=== PATIENT | male | born 1960 | race Caucasian/White ===

== ENCOUNTER 2020-06-02 13:46 | Outpatient (CLI) | payer BC, SELFPAY ==
--- NOTE | 2020-06-02 14:36 | ECG_ITS ---
Measurements Intervals Elbert Rate: 77 P: 30 MS: 169 QRS: -28 QRSD: 105 T: -11 QT: 378 QTc: 429 Interpretive Statements SINUS RHYTHM LOW QRS VOLTAGE IN PRECORDIAL LEADS BORDERLINE R WAVE PROGRESSION, ANTERIOR LEADS BORDERLINE ST-T WAVE ABNORMALITY- INFERIOR LEADS BASELINE ARTIFACT- I, II, III, AVR, AVL BORDERLINE ECG Electronically Signed On 06-02-2020 14:50:16 [employer]ORTS COMMENT[employer] by Norris Crowell D.O.
[2020-06-02 14:57] LABS: Basophils Absolute Auto 0.1 K/mm3 (0.0-0.1); Basophils Percent Auto 1.3 % (0.2-1.2); Eosinophils Absolute Auto 0.2 K/mm3 (0-0.3); Eosinophils Percent Auto 4.4 % (0-4.4); Hematocrit 41.7 % (42.0-52.0); Immature Granulocyte Absolute 0.01 K/mm3 (0.00-0.031); Immature Granulocyte Percent A 0.2 % (0-0.5); Lymphocytes Absolute Auto 1.22 K/mm3 (0.9-3.2); Lymphocytes Percent Auto 27.1 % (18.3-44.2); Mean Corpuscular HGB Conc 33.6 g/dl (32-36); Mean Corpuscular Volume 92.3 fl (80-100); Mean Platelet Volume 9.7 fl (7.4-10.4); Monocytes Absolute Auto 0.7 K/mm3 (0.1-0.6); Monocytes Percent Auto 14.9 % (2.6-8.5); Neutrophils Absolute Auto 2.4 K/mm3 (1.3-6.7); Neutrophils Percent Auto 52.1 % (45.5-73.1); Platelet Count Result 228 k/mm3 (150-375); Red Blood Count 4.52 M/mm3 (4.6-6.20); Red Cell Distribution Width 12.4 % (11.5-14.5); White Blood Count 4.5 K/mm3 (4.5-10.0)
[2020-06-02 15:12] LABS: Albumin Level 3.8 g/dL (3.5-5.1)
[2020-06-02 15:14] LABS: Anion Gap 2 mmol/L (8-16); Blood Urea Nitrogen 24 mg/dL (9-20); Calcium 8.9 mg/dL (8.4-10.2); Carbon Dioxide 27 mmol/L (22-30); Chloride 108 mmol/L (98-107); Estimated Glomerular Filt Rate > 60; Glucose 90 mg/dL (75-110); Potassium 4.4 mmol/L (3.4-5.0); Sodium 137 mmol/L (137-145)
[2020-06-02 15:18] LABS: Urine Cotinine NEGATIVE
== END 2020-06-02 13:47 | disposition home or self-care (01) ==
LOC: ANHSURGERY 13:52
PROVIDERS: Anesthesiology; PCP Family Medicine; Visit Provider Orthopaedic Surgery
DX: Z01.818 Encounter for other preprocedural examination (principal); M17.11 Unilateral primary osteoarthritis, right knee; I10 Essential (primary) hypertension
CPT/HCPCS: 36415; 80048; 80307; 82040; 83036; 85025; 86850; 86900; 86901; 93005

== ENCOUNTER → 2020-06-07 00:50 | Outpatient (CLI) | payer BC, SELFPAY ==
[2020-06-07 18:54] LABS: SARS-CoV-2 RNA PCR Negative
== END ==
PROVIDERS: PCP Family Medicine; Visit Provider Orthopaedic Surgery
DX: Z01.812 Encounter for preprocedural laboratory examination (principal); Z20.822 Contact with and (suspected) exposure to COVID-19
CPT/HCPCS: C9803; U0003; U0005

== ENCOUNTER 2020-06-11 00:12 | Day surgery (SDC) | payer BC, SELFPAY ==
[2020-06-02 13:58] VITALS: BMI 34.3
[2020-06-02 14:36] VITALS: BP 158/95; PULSE 80; RESP 16; TEMP 36.9; O2SAT 100
--- NOTE | 2020-06-06 13:50 | P.HP_ITS ---
H&P: HPI History of Present Illness Date/Time: 06/06/20 13:50 The patient is a 60-year-old male presents with right knee pain due to primary osteoarthritis. Patient has a chronic ongoing history of pain localized to the right knee pain that is worse with activity somewhat relieved by rest. He has start up pain rest pain and night pain, can not stand or walk for long periods. Any twisting or turning on the knee causes significant pain as well. Most of his pain is medial joint line and x-rays show advanced significant narrowing of the medial compartment which is nearly [id number]. He also has by previous MRI scan a medial meniscal tear but he has enough osteoarthritis that would likely only benefit from total knee arthroplasty. He has failed a long course of conservative measures including cortisone gel shots therapy and anti- inflammatories, his knee pain continues, at this point the patient has discussed further treatment options in detail with Dr. Gardner he would now like to proceed with a total knee arthroplasty and right knee. Chief Complaint: Right knee pain due to advanced primary osteoarthritis right knee Review of Systems Review of Systems: All systems reviewed & are unremarkable except as noted in HPI and below PMFSH Social History Social History Smoking status: Never smoker Additional smoking assessment comments: DENIES ANY FORM OF TOBACCO USE Alcohol intake: current Drinks per week: 2 Spiritual care concerns: No Meds Home Medications and Allergies Home Medications Medication Instructions Recorded Confirmed Type ascorbate calcium (vitamin C) 500 mg PO DAILY 06/02/20 06/02/20 History atorvastatin 10 mg PO DAILY 06/02/20 06/02/20 History cholecalciferol (vitamin D3) 25 mcg PO DAILY 06/02/20 06/02/20 History glucosamine sulfate [Glucosamine] 750 mg PO DAILY 06/02/20 06/02/20 History irbesartan-hydrochlorothiazide 1 tablet PO DAILY 06/02/20 06/02/20 History saw palmetto 450 mg PO DAILY 06/02/20 06/02/20 History Allergies Allergy/AdvReac Type Severity Reaction Status Date / Time No Known Allergies Allergy Unverified 06/02/20 13:59 Exam 2 Narrative: Exam Narrative: The patient is a well-developed well-nourished male in no acute distress. He is 6 ft tall, 225 lb with a BMI of 30.5. HEENT exam within normal limits. Heart regular rate rhythm. Lungs clear auscultation. Abdomen benign. Extremities showed the patient's right knee to be painful with manipulation range of motion. He has tenderness on the medial joint line Pia maneuver causes global pain. He has full range of motion pain with extremes of motion. Is mild effusion and subpatellar crepitation through the arc of motion no varus or valgus instability is noted strength is 5 5. has mild varus deformity, hips move well with negative Stinchfield negative CLAY. Neurovascular is intact skin is intact. Central nervous system exam within normal limits. Assessment and Plan Additional Plan By history and exam the patient is noted to have advanced primary osteoarthritis right knee joint. The patient has discussed risks benefits limitations and alternatives to surgery in great detail with Dr. Gardner he is now ready to proceed with right total knee arthroplasty. The patient is scheduled to go surgery 06/11/[facility] at [facility] with Dr. Gardner. The patient voiced understanding and agrees with the above plan.
--- NOTE | 2020-06-10 09:55 | WPDANESEPPF ---
Anes - Initial Pre Proc Eval Procedure: Operation Date: 06/11/20 07:30 Proposed Procedures p Right Total Knee Arthroplasty - Matthias Gardner MD Date/Time: 06/10/20 09:55 Surgeon: Matthias Gardner MD Pre Op Diagnosis: OA right knee Patient Data Age: 60 Gender: M Height: 1.83 m Weight: 114.8 kg Last Vital Signs Temp 36.9 C 06/02/20 14:36 Pulse 80 06/02/20 14:36 Resp 16 06/02/20 14:36 BP 158/95 H 06/02/20 14:36 Pulse Ox 100 06/02/20 14:36 Allergies Allergy/AdvReac Type Severity Reaction Status Date / Time No Known Allergies Allergy Unverified 06/11/20 06:38 Home Medications Medication Instructions Recorded Confirmed Type ascorbate calcium (vitamin C) 500 mg PO DAILY 06/02/20 06/11/20 History atorvastatin 10 mg PO DAILY 06/02/20 06/11/20 History cholecalciferol (vitamin D3) 25 mcg PO DAILY 06/02/20 06/11/20 History glucosamine sulfate [Glucosamine] 750 mg PO DAILY 06/02/20 06/11/20 History irbesartan-hydrochlorothiazide 1 tablet PO DAILY 06/02/20 06/11/20 History saw palmetto 450 mg PO DAILY 06/02/20 06/11/20 History Patient hx anesthesia problems: none Family hx anesthesia problems: none PMFSH Past Medical History Medical History (Updated 06/10/20 @ 09:56 by Juan Cardona DO) GERD (gastroesophageal reflux disease) Hyperlipidemia Hypertension Osteoarthritis Social History Social History Smoking status: Never smoker Additional smoking assessment comments: DENIES ANY FORM OF TOBACCO USE Alcohol intake: current Drinks per week: 2 Living arrangements: with family Spiritual care concerns: No Anes - Eval Final PreProcedure Day of Procedure 06/10/20 09:55 Patient weight: obese Heart: regular rate and rhythm Lungs: clear to auscultation and normal air movement Airway: Mallampati scale class III Neurological: alert and oriented Last oral intake: >/= 8 hours ASA classification: III Emergent: no Anesthetic plan: proceed Anesthesia type and monitoring: general LMA and standard monitoring Informed Consent: The patient's anesthetic plan and its attendant risks and benefits were discussed with the patient/family/POA. Questions were solicited and answers provided to the satisfaction of the patient/family/POA.
--- NOTE | 2020-06-10 09:56 | WPDANESPNB ---
Anes - Peripheral Nerve Block Date/Time: 06/10/20 09:56 I have discussed with the patient/family/POA the placement of a peripheral nerve block for post-operative pain management, including associated risks, benefits, complications, and side effects. Alternative methods of post-operative analgesia were detailed. Questions were solicited and answers provided to the satisfaction of the patient/family/POA. Time-Out: A pre-procedural Time-Out was completed immediately before starting the procedure and confirmed: Patient Identification, Site, Procedure, Patient Position and the Availability of Requisite Equipment. Clinical Indications: Acute post-operative pain management requested by the operative surgeon. Nerve Block Insertion Note Anes-nerve block: adductor canal right Patient position: supine Skin prep: chlorhexidine Needle: 22 gauge, stimulating, insulated echogenic needle. Needle length: 80 mm Technique: ultrasound Injectate: bupivacaine 0.5% with epi 5 mcg/ml (30cc - no epi) Observations: tolerated well Complications: none Procedure start time:: 714 Procedure end time:: 717
[2020-06-11] VITALS (17 sets, daily range): BP systolic 115–161; BP diastolic 65–93; PULSE 67–87; RESP 14–18; TEMP 36.2–36.9; O2SAT 92–99; BMI 34.4
--- NOTE | ~2020-06-11 | XR_ITS ---
EXAMINATION: XR knee RT 2V DATE: 06/11/2020 09:25 INDICATION: Postoperative evaluation following right total knee arthroplasty. TECHNIQUE: Anteroposterior and lateral views of the right knee were obtained. COMPARISON: None. FINDINGS: Right total knee arthroplasty with patellar resurfacing appears well seated and in near anatomic alig nment. No fractures identified. Skin jean and expected postoperative subcutaneous, intramedullar y and intra-articular gas. IMPRESSION: 1. Right total knee arthroplasty, negative for postoperative purposes. Reviewed, dictated and finalized at location B.
[2020-06-11] MEDS: ACETAMINOPHEN 500 MG TABLET 1000 MG PO (06:38)
[2020-06-11] MEDS: LACTATED RINGERS 1,000 ML 30 ML IV CONT ×2 (06:46→09:15)
[2020-06-11] MEDS: TRANEXAMIC ACID 1,000MG/ISO100 1,000 MG/100 ML BAG 200 MG IVPB (06:58)
--- NOTE | 2020-06-11 07:13 | WPDHPUPDATE1 ---
History and Physical Update Update Date/Time: 06/11/20 07:13 History and Physical has been reviewed, including an updated exam of the patient. There are NO changes in the patient's condition. Risks, benefits, and alternatives have been discussed and questions answered. Patient agrees to proceed with procedure.
[2020-06-11] MEDS: ceFAZolin 2 GM/D5W 50 ML 2 GM/50 ML BAG IVPB ×4 (07:27→23:15)
[2020-06-11] MEDS: GENTAMICIN BONE CEMENT REFOBACIN 1 EACH TOPICAL (08:14)
--- NOTE | 2020-06-11 08:46 | PM.PROC ---
Procedure Note - Detailed Date of procedure: 06/11/20 Pre-op diagnosis: OA right knee Post-op diagnosis: same Procedure performed: [Right] total knee arthroplasty Description of procedure: The patient was brought to the operating room. General anesthetic was administered. Placed on the operating table and sterilely prepped and draped in usual manner. A longitudinal incision was made. Tourniquet inflated to 300 mmHg for a total of [time] minutes. Dissection carried down to the fascia. Medial parapatellar incision was made and the patella subluxated laterally. Patella cut from [27] to [16] mm and sized for a [37] mm button. The tibia cut perpendicular to the long axis and femur cut in 5 degrees of valgus, a [70] femur trialed. [75] tibia was felt to fit the best. The soft tissue balanced, hemostasis obtained. All [address], [75] tibia, [70] femur, [37] mm patella, and [12 ] mm poly. Motion was 0-125 degrees with good stablility and flexion and extension. The wound was closed with #2 vicryl, 2-0 Vicryl and jean. Anesthesia: GETA Surgeon: Matthias Gardner MD Primary Care Nurse: Gamaliel Whitaker Estimated blood loss (mL): 200 Drains: No Packing: No Pathology: none sent Complications: No immediate complications Condition: stable Disposition: PACU Findings: arthritis
[2020-06-11] MEDS: fentaNYL CITRATE INJ (*CRX) 100 MCG/2 ML VIAL 25 MCG IV PUSH ×8 (09:36→10:15)
--- NOTE | 2020-06-11 10:07 | SUR.PHASEI ---
0955; PT DOZING. SAO2 DROPS TO 88%, O2 2L NC APPLIED. RESP EVEN UNLABORED. 1004; PT AWAKENS SELF. STATES PAIN STILL 10/10. FLACC SCORE=1. FENTANYL GIVEN PRN.
[2020-06-11] MEDS: HYDROmorphone HCL INJ (*CRX) 1 MG/ML SYR 0.5 MG IV PUSH ×4 (10:21→10:41)
--- NOTE | 2020-06-11 10:24 | SUR.PHASEI ---
1015; DR SAHNI AT BEDSIDE. PT RELAXED. STATES PAIN REMAINS 01/04. DILAUDID ORDERED.
--- NOTE | 2020-06-11 10:42 | SUR.PHASEI ---
1030; PT DOZING IN INTERVALS. WHEN AWAKE, PT IS RELAXED AND TALKATIVE. FLACC SCORE =0. PT EATS ICE CHIPS WHEN AWAKE ALSO. PT STATES PAIN REMAINS 10/10. DILAUDID GIVEN PRN. 1043; PT SLEEPING. SOFT SNORING NOTED. HOB ELEVATED 30 DEGREES
--- NOTE | 2020-06-11 10:57 | SUR.PHASEI ---
PT AWAKE AND ALERT. EATING ICE CHIPS, TALKATIVE. STATES PAIN STARTING TO IMPROVE, -11/04
--- NOTE | 2020-06-11 11:03 | SUR.PHASEI ---
1100; PT AWAKE, EATING ICE CHIPS IN INTERVALS. PT IS DROWSY. DOZES FREQUENTLY. STATES PAIN IMPROVING 11/04. ITS BETTER FLACC SCORE -0-1.
--- NOTE | 2020-06-11 11:18 | SUR.PHASEI ---
1110; PT AWAKE AND ALERT. FINISHED ICE CHIPS. STATES PAIN IMPROVED AND MORE TOLERABLE NOW. READY TO SEE FAMILY.
--- NOTE | 2020-06-11 11:30 | ADMGEN ---
This patient, Martín Lewis, was admitted to 2 Medical Room 260-01. Patient/family oriented to hospital policies and general routines including ID bracelet, bed and alarms, visiting hours, pain management, procedures, bathroom and other care routines, personal items, smoking policy, room service/diet, and visiting hours. Information on how to activate the Rapid Response Team has been discussed. Patient/Family are encouraged to report perceived risks to care and to ask questions if they do not understand what they are told or what they should do.
[2020-06-11] MEDS: SODIUM CHLORIDE 0.9% IV 1,000 ML 125 ML IV CONT (12:12)
[2020-06-11] MEDS: DOCUSATE SODIUM 100 MG CAPSULE PO ×2 (12:13→16:33)
[2020-06-11] MEDS: ONDANSETRON INJ 4 MG/2 ML VIAL IV PUSH ×2 (12:13→16:35)
[2020-06-11] MEDS: HYDROcodone/acetaminophen (*CRX) 7.5-325 MG TABLET 1 TAB PO ×3 (12:33→20:22)
[2020-06-11] MEDS: hydroCHLOROthiazide 12.5 MG CAPSULE PO (12:58)
[2020-06-11] MEDS: IRBESARTAN 150 MG TABLET 300 MG PO (12:58)
[2020-06-11] MEDS: ATORVASTATIN 10 MG TABLET PO (12:58)
--- NOTE | 2020-06-11 16:29 | PM.IMCN ---
Assessment and Plan Assessment and plan (1) History of total right knee replacement: Code(s): Z96.651 - Presence of right artificial knee joint Status: Acute Assessment and Plan: Patient underwent right total knee arthroplasty on 06/11/[address] Gardner. Continue pain meds per ortho Continue anticoagulation and DVT prophylaxis per ortho Discharge planning per ortho We were consulted on for medical management with his history of hypertension, hyperlipidemia and GERD (2) Hypertension: Code(s): I10 - Essential (primary) hypertension Status: Inactive Assessment and Plan: Blood pressure postop has been slightly elevated, 147/90. Will restart his home medications as prescribed and continue monitoring blood pressure. (3) Hyperlipidemia: Code(s): E78.5 - Hyperlipidemia, unspecified Status: Inactive Assessment and Plan: Continue statin medication. (4) GERD (gastroesophageal reflux disease): Code(s): K21.9 - Gastro-esophageal reflux disease without esophagitis Status: Inactive Assessment and Plan: Will start PPI since he is postop in the hospital twice daily. (5) Nausea: Code(s): R11.0 - Nausea Status: Acute Assessment and Plan: Patient has some nausea this evening. He was given IV Zofran with some improvement. Most likely from anesthesia verses oral pain medications he has been receiving. Will continue monitoring and given IV Zofran p.r.n.. Additional Plan Thank you for allowing us to consult on this patient. Call me if you have any questions or concerns. HPI Data of Consult Consult date: 06/11/20 Requesting Physician: Matthias Gardner MD Primary Care Provider: Timo Childress MD Consult Narrative Narrative: Martín Lewis is a 60 year old male with a history of hypertension, hyperlipidemia, who was admitted to the hospital after having a right total knee arthroplasty by Dr. Gardner 06/11/20. Patient had a longstanding history of osteoarthritis with worsening pain to right knee since December of 2019. He tried have surgery February of 2020 but it was canceled due to COVID and decreasing the amount of surgeries performed. He works at [employer] and is on his feet all day walking on a concrete floor. He develops significant pain even with being at work for 45 minutes walking around. He was able to get surgery to help with his continued knee pain. After surgery he had some hoarseness to his voice which has improved throughout the day. He also reports some nausea but it is improving after getting some IV Zofran. He has been having some heartburn issues at home which he takes Tums. He denies any chest pain, shortness of breath, fever, chills, cough, vomiting, abdominal pain, constipation, diarrhea, leg swelling, calf pain, lightheadedness, dizziness or any other symptoms at this time. Review of Systems Review of Systems: All systems reviewed & are unremarkable except as noted in HPI and below [facility] Past Medical History Medical History (Updated 06/11/20 @ 17:07 by Christen Khan PA-C) GERD (gastroesophageal reflux disease) History of trigger finger Surgery in past, left Hyperlipidemia Hypertension Osteoarthritis Surgical History Surgical History (Updated 06/11/20 @ 17:04 by Christen Khan PA-C) History of carpal tunnel release Left History of total right knee replacement Family History Family History Other Unknown family medical history Social History Social History (Updated 06/11/20 @ 17:05 by Christen Khan PA-C) Smoking status: Never smoker Second hand tobac
[2020-06-11] MEDS: RIVAROXABAN 10 MG TABLET PO (18:12)
[2020-06-11] MEDS: HYDROcodone/acetaminophen (*CRX) 5-325 MG TABLET 1 TAB PO ×2 (18:15→23:19)
[2020-06-11] MEDS: PANTOPRAZOLE 40 MG TABLET PO (20:22)
[2020-06-12] MEDS: HYDROcodone/acetaminophen (*CRX) 7.5-325 MG TABLET 1 TAB PO ×5 (01:12→12:38)
[2020-06-12] MEDS: SODIUM CHLORIDE 0.9% IV 1,000 ML 125 ML IV CONT (01:12)
[2020-06-12 02:00] VITALS: BP 128/57; PULSE 79; RESP 16; TEMP 36.6; O2SAT 97
[2020-06-12 05:54] LABS: Basophils Percent Auto 0.3 % (0.2-1.2); Eosinophils Percent Auto 0.1 % (0-4.4); Hematocrit 38.4 % (42.0-52.0); Hemoglobin 12.7 g/dL (14.0-18.0); Immature Granulocyte Absolute 0.04 K/mm3 (0.00-0.031); Immature Granulocyte Percent A 0.4 % (0-0.5); Lymphocytes Absolute Auto 0.82 K/mm3 (0.9-3.2); Lymphocytes Percent Auto 8.2 % (18.3-44.2); Mean Corpuscular HGB Conc 33.1 g/dl (32-36); Mean Corpuscular Hemoglobin 30.4 pg (26-34); Mean Corpuscular Volume 91.9 fl (80-100); Mean Platelet Volume 10.2 fl (7.4-10.4); Monocytes Absolute Auto 1.5 K/mm3 (0.1-0.6); Monocytes Percent Auto 14.7 % (2.6-8.5); Neutrophils Absolute Auto 7.6 K/mm3 (1.3-6.7); Neutrophils Percent Auto 76.3 % (45.5-73.1); Platelet Count Result 228 k/mm3 (150-375); Red Blood Count 4.18 M/mm3 (4.6-6.20); Red Cell Distribution Width 12.4 % (11.5-14.5)
[2020-06-12 05:57] LABS: Anion Gap 6 mmol/L (8-16); Blood Urea Nitrogen 17 mg/dL (9-20); Calcium 8.6 mg/dL (8.4-10.2); Carbon Dioxide 22 mmol/L (22-30); Chloride 105 mmol/L (98-107); Estimated CRCL calculation 109 ml/min; Estimated Glomerular Filt Rate > 60; Glucose 107 mg/dL (75-110); Potassium 4.1 mmol/L (3.4-5.0); Sodium 133 mmol/L (137-145)
[2020-06-12 06:00] VITALS: BP 130/71; PULSE 72; RESP 18; TEMP 36.4; O2SAT 99
[2020-06-12] MEDS: ceFAZolin 2 GM/D5W 50 ML 2 GM/50 ML BAG IVPB (06:58)
[2020-06-12] MEDS: ATORVASTATIN 10 MG TABLET PO (08:25)
[2020-06-12] MEDS: PANTOPRAZOLE 40 MG TABLET PO (08:25)
[2020-06-12] MEDS: DOCUSATE SODIUM 100 MG CAPSULE PO (08:25)
[2020-06-12] MEDS: IRBESARTAN 150 MG TABLET 300 MG PO (08:25)
[2020-06-12] MEDS: hydroCHLOROthiazide 12.5 MG CAPSULE PO (08:25)
--- NOTE | 2020-06-12 09:27 | WPDANESPN ---
Anes - Prog Note Post-Op Date/Time: 06/12/20 09:27 Cardiovascular status: normal Respiratory status: normal Airway patency: baseline Mental status: baseline Post-Op hydration status: normal Vital Signs: Last Vital Signs Temp 36.4 C 06/12/20 06:00 Pulse 72 06/12/20 06:00 Resp 18 06/12/20 06:00 BP 130/71 06/12/20 06:00 Pulse Ox 99 06/12/20 06:00 Pain Score (VAS): 2 I/O: Intake & Output 06/11/20 06/12/20 06/12/20 23:59 07:59 15:59 Intake Total 1550 700 871 Output Total 700 Balance 1550 0 871 Laboratory Tests 06/12/20 05:10 06/12/20 05:10 06/12/20 06/12/20 05:10 05:10 WBC 10.0 RBC 4.18 L Hgb 12.7 L Hct 38.4 L MCV 91.9 MCH 30.4 MCHC 33.1 RDW 12.4 Plt Count 228 MPV 10.2 Immature Gran % (Auto) 0.4 Neut % (Auto) 76.3 H Lymph % (Auto) 8.2 L [place] % (Auto) 14.7 H Eos % (Auto) 0.1 Baso % (Auto) 0.3 Lymph # (Auto) 0.82 L [place] # (Auto) 1.5 H Eos # (Auto) 0.0 Baso # (Auto) 0.0 Abs Immat Gran (auto) 0.04 H Absolute Neuts (auto) 7.6 H Absolute Nucleated RBC 0.0 Nucleated RBC % 0.0 Sodium 133 L Potassium 4.1 Chloride 105 Carbon Dioxide 22 Anion Gap 6 L BUN 17 Creatinine 0.80 Estim Creat Clear Calc 109 Estimated GFR > 60 Glucose 107 Calcium 8.6 Post-procedural complaints: none Patient Feedback: Patient satisfied with anesthetic care.
--- NOTE | 2020-06-12 10:36 | PM.PNORT ---
Progress Note: A&P Additional Plan Patient is postop day 1 status post right total knee arthroplasty doing well deemed stable for discharge home patient voiced understanding agrees above plan see discharge orders. Subjective Subjective Date/Time Seen: 06/12/20 10:36 patient is postop day 1 status post total knee arthroplasty doing well pain is well controlled tolerated physical therapy well also. He has had no significant postoperative complications and is deemed stable for discharge to home Review of Systems Review of Systems: All systems reviewed & are unremarkable except as noted in HPI and below Exam Narrative: Exam Narrative: patient is no acute distress vital signs are stable he is afebrile neurovascular is intact wound is clean and dry calves are benign tolerated physical therapy well status post total knee arthroplasty. Objective Data Vital Signs Vital Signs: Vital Signs - 24 hr 06/11/20 10:45 06/11/20 11:00 06/11/20 11:30 Temperature 36.4 C Pulse Rate 72 75 73 Respiratory Rate 14 14 14 Blood Pressure 157/84 H 150/85 H 157/87 H Pulse Oximetry 95 96 99 06/11/20 11:45 06/11/20 12:15 06/11/20 13:15 Temperature 36.4 C 36.8 C 36.5 C Pulse Rate 72 70 87 Respiratory Rate 16 16 18 Blood Pressure 158/93 H 161/87 H 147/90 H Pulse Oximetry 98 94 98 06/11/20 16:30 06/11/20 18:00 06/11/20 20:00 Temperature 36.4 C L Pulse Rate 67 67 Respiratory Rate 18 18 Blood Pressure 115/70 Pulse Oximetry 92 99 99 06/11/20 22:00 06/12/20 02:00 06/12/20 06:00 Temperature 36.6 C 36.6 C 36.4 C Pulse Rate 78 79 72 Respiratory Rate 14 16 18 Blood Pressure 119/65 128/57 L 130/71 Pulse Oximetry 97 97 99 Intake/Output Intake/Output: Intake & Output 06/09/20 06/10/20 06/11/20 06/12/20 23:59 23:59 23:59 23:59 Intake Total 2630 1571 Output Total 700 Balance 2630 871 Meds/Results Medications: Active Medications Generic Name Dose Route Start Last Admin Trade Name Freq PRN Reason Stop Dose Admin Hydrocodone Bitart/Acetaminophen 1 tab 06/11/20 07:13 06/11/20 23:19 Hydrocodone/Acetaminophen (*Crx) 5-325 Mg Tablet PO 1 tab Q4H PRN Administration Pain Rated 4-6 Hydrocodone Bitart/Acetaminophen 1 tab 06/11/20 07:13 Hydrocodone/Acetaminophen (*Crx) 7.5-325 Mg Tablet PO Q6H PRN Pain Rated 7-10 Hydrocodone Bitart/Acetaminophen 1 tab 06/11/20 09:00 06/12/20 08:25 Hydrocodone/Acetaminophen (*Crx) 7.5-325 Mg Tablet PO 1 tab Q4HR ILANA Administration Atorvastatin Calcium 10 mg 06/11/20 09:00 06/12/20 08:25 Atorvastatin 10 Mg Tablet PO 10 mg DAILY ILANA Administration Bisacodyl 10 mg 06/11/20 07:13 Bisacodyl 10 Mg Suppository RECTAL DAILY PRN Constipation Cyclobenzaprine HCl 10 mg 06/11/20 07:13 Cyclobenzaprine Hcl 10 Mg Tablet PO Q8H PRN Spasms Diphenhydramine HCl 25 mg 06/11/20 07:13 Diphenhydramine Hcl Inj 50 Mg/Ml Vial IV PUSH Q6H PRN Itching Docusate Sodium 100 mg 06/11/20 09:00 06/12/20 08:25 Docusate Sodium 100 Mg Capsule PO 100 mg BID ILANA Administration Hydrochlorothiazide 12.5 mg 06/11/20 09:00 06/12/20 08:25 Hydrochlorothiazide 12.5 Mg Capsule PO 12.5 mg QAM ILANA Administration Irbesartan 300 mg 06/11/20 09:00 06/12/20 08:25 Irbesartan 150 Mg Tablet PO 300 mg QAM ILANA Administration Naloxone HCl 0.1 mg 06/11/20 07:13 Naloxone Hcl 0.4 Mg/Ml Vial IV PUSH Q2M PRN Opiate Reversal Ondansetron HCl 4 mg 06/11/20 07:13 06/11/20 16:35 Ondansetron Inj 4 Mg/2 Ml Vial IV PUSH 4 mg Q4H PRN Administration Nausea And Vomiting Pantoprazole Sodium 40 mg 06/11/20 21:00 06/12/20 08:25 Pantoprazole 40 Mg Tablet PO 40 mg Q12HR ILANA Administration Rivaroxaban 10 mg 06/11/20 18:00 06/11/20 18:12 Rivaroxaban 10 Mg Tablet PO 06/22/20 17:01 10 mg DAILY@17 ILANA Administration Tramadol HCl 50 mg 06/11/20 07:13 Tramadol Hcl (*
[2020-06-12 10:41] VITALS: BP 106/62; PULSE 72; RESP 24; TEMP 36.6; O2SAT 96
--- NOTE | 2020-06-12 12:04 | PM.DS ---
DS: Admitting Diagnosis Admitting Diagnosis Admitting Diagnosis: Primary osteoarthritis right knee joint Discharge diagnosis same, status post right total knee arthroplasty DS: Summary Hospital Course Hospital Course: Patient was admitted overnight on June 11, 2020 status post right total knee arthroplasty. Postop day 1 doing well without postoperative complications. Pain is well-controlled tolerated physical therapy labs are stable vital signs are stable afebrile. Patient deemed stable for discharge to home. Time Spent with Patient Time attestation: Total time spent providing and/or coordinating discharge services: Exam Narrative: Exam Narrative: Patient is doing well status post total knee arthroplasty postop day 1, vital signs are stable afebrile neurovascular the patient is intact wound is clean and dry except for a small amount of serous bloody drainage the very proximal end of the wound otherwise looks good. Calves are benign. Patient's pain is well controlled tolerating physical therapy well ambulating independently with a walker. He is alert oriented x3. Normal mood and affect today postop day 1. DS: Data Data Completed and Pending Labs on day of discharge: Labs from last 24 hours 06/12/20 06/12/20 05:10 05:10 WBC 10.0 RBC 4.18 L Hgb 12.7 L Hct 38.4 L MCV 91.9 MCH 30.4 MCHC 33.1 RDW 12.4 Plt Count 228 MPV 10.2 Immature Gran % (Auto) 0.4 Neut % (Auto) 76.3 H Lymph % (Auto) 8.2 L [place] % (Auto) 14.7 H Eos % (Auto) 0.1 Baso % (Auto) 0.3 Lymph # (Auto) 0.82 L [place] # (Auto) 1.5 H Eos # (Auto) 0.0 Baso # (Auto) 0.0 Abs Immat Gran (auto) 0.04 H Absolute Neuts (auto) 7.6 H Absolute Nucleated RBC 0.0 Nucleated RBC % 0.0 Sodium 133 L Potassium 4.1 Chloride 105 Carbon Dioxide 22 Anion Gap 6 L BUN 17 Creatinine 0.80 Estim Creat Clear Calc 109 Estimated GFR > 60 Glucose 107 Calcium 8.6 Discharge Plan Discharge Patient Disposition: Home, Self-Care Discharge Instructions: Discharge home general diet, activity as tolerated and weight-bearing as tolerated right lower extremity with a walker. Change dressing daily water evidence of drainage or infection call the office immediately for any problems difficulties or questions [phone], follow-up at 2 weeks postop for staple removal and wound recheck. Outpatient physical therapy to start the beginning of next week for total knee protocol at our office. The patient will be discharged with Xarelto 10 mg daily for total postop course of 2 weeks when this is complete start aspirin 325 mg b.i.d. x1 month. Also discharged with Odin 7.5 mg every 3 hours p.r.n. pain Patient Instructions: Rivaroxaban (By mouth), Joint Replacement Surgery (DC), Knee Replacement (DC) Stand Alone Forms: Avoid NSAIDs, General Discharge Instructions Discharge Medications: New hydrocodone-acetaminophen 7.5-325 mg Tablet 1 tablet PO Q4-6H PRN (Reason: Pain Rated 7-10) Qty: 50 RF: 0 Xarelto 10 mg Tablet 10 mg PO DAILY@17 Qty: 13 RF: 0 Continued atorvastatin 10 mg Tablet 10 mg PO DAILY RF: 0 irbesartan-hydrochlorothiazide 300-12.5 mg Tablet 1 tablet PO DAILY RF: 0 glucosamine sulfate 750 mg Tablet 750 mg PO DAILY RF: 0 ascorbate calcium (vitamin C) 500 mg Capsule 500 mg PO DAILY RF: 0 saw palmetto 450 mg Capsule 450 mg PO DAILY RF: 0 cholecalciferol (vitamin D3) 25 mcg (1,000 unit) Tablet 25 mcg PO DAILY RF: 0 Quality VTE Prophylaxis VTE prophylaxis: mechanical ordered and pharmacologic ordered
--- NOTE | 2020-06-12 14:49 | PM.IMPN ---
Progress Note: A&P Assessment and Plan (1) History of total right knee replacement: Code(s): Z96.651 - Presence of right artificial knee joint Status: Acute Assessment and Plan: Patient underwent right total knee arthroplasty on 06/11/[address] Gardner. Continue pain meds per ortho Continue anticoagulation and DVT prophylaxis per ortho Discharge planning per ortho We were consulted on for medical management with his history of hypertension, hyperlipidemia and GERD. From a medical standpoint he is stable for discharge once ortho has cleared him. (2) Hypertension: Code(s): I10 - Essential (primary) hypertension Status: Inactive Assessment and Plan: Blood pressure has been better controlled today 130/71 this morning. Continue his home medications as prescribed. (3) Hyperlipidemia: Code(s): E78.5 - Hyperlipidemia, unspecified Status: Inactive Assessment and Plan: Continue statin medication. (4) GERD (gastroesophageal reflux disease): Code(s): K21.9 - Gastro-esophageal reflux disease without esophagitis Status: Inactive Assessment and Plan: Can discontinue PPI upon discharge. Explained to the patient if he is having more heartburn issues he will need to get some [id number] omeprazole which he can take for 2 weeks to improve his heartburn symptoms. (5) Nausea: Code(s): R11.0 - Nausea Status: Acute Assessment and Plan: Nausea has much improved. He is eating and drinking without any issues. Time Spent With Patient Time with patient: 25 - 35 minutes Subjective Date/time seen: 06/12/20 14:49 Interval history: Date of service 06/12/2020: Patient reports feeling well today without any issues other than some pain to his right knee. Currently working with therapy which not helping with his pain postop. He is passing gas. He denies any fevers, chills, chest pain, shortness of breath, cough, hoarse voice, nausea, vomiting, abdominal pain, constipation, diarrhea, calf pain or any other symptoms at this time. Review of Systems Review of Systems: All systems reviewed & are unremarkable except as noted in HPI and below Exam Narrative: Exam Narrative: General: 60-year-old man sitting up on the side of the bed working with therapy. Appears comfortable with right knee elevated in bed In no acute distress. Skin: No jaundice or cyanosis. Good skin turgor. Neck: Full range of motion. Supple. Respiratory: Lungs are clear to auscultation bilaterally. No bony chest wall tenderness. Cardiovascular: The heart has a regular rate and rhythm without murmur. Lower extremities: Right leg with Ice pack in place over right knee and bilateral Gene hose in place. Distal pulses are easily palpated. No calf tenderness to palpation. Gastrointestinal: The abdomen is soft, nontender and nondistended with active bowel sounds. Psychiatric: Lucid and oriented. Memory intact. Neurologic: No focal deficits. Speech is clear. No facial drooping. Objective Data Vital Signs Vital Signs: Vital Signs - 24 hr 06/11/20 16:30 06/11/20 18:00 06/11/20 20:00 Temperature 97.5 F L Pulse Rate 67 67 Respiratory Rate 18 18 Blood Pressure 115/70 Pulse Oximetry 92 99 99 06/11/20 22:00 06/12/20 02:00 06/12/20 06:00 Temperature 97.8 F 97.8 F 97.6 F Pulse Rate 78 79 72 Respiratory Rate 14 16 18 Blood Pressure 119/65 128/57 L 130/71 Pulse Oximetry 97 97 99 06/12/20 10:41 Temperature 97.9 F Pulse Rate 72 Respiratory Rate 24 H Blood Pressure 106/62 Pulse Oximetry 96 Intake/Output Intake/Output: Intake & Output 06/09/20 06/10/20 06/11/20 06/12/20 23:59 23:59 23:59 23:59 Intake Total 4380 8021 Ou
== END 2020-06-12 14:40 | disposition home or self-care (01) ==
LOC: ANHSURGERY 05:55 → ANH2MED 11:42
PROVIDERS: PCP Family Medicine; Visit Provider Orthopaedic Surgery
PROC: (CPT 27447; principal; 2020-06-11 07:30)
DX: M17.11 Unilateral primary osteoarthritis, right knee (principal); G89.18 Other acute postprocedural pain; K21.9 Gastro-esophageal reflux disease without esophagitis; I10 Essential (primary) hypertension; E78.5 Hyperlipidemia, unspecified; E66.9 Obesity, unspecified; Z68.34 Body mass index [BMI] 34.0-34.9, adult
CPT/HCPCS: 64447; 27447; 36415; 73560; 80048; 85025; 97110; 97116; 97161; 97165; 97530; 97535; A9270; C1713; C1776; J0171; J0690; J1100; J1170; J1885; J2250; J2270; J2405; J2704; J2795; J3010; J3370; J7030; J7120